=== PATIENT | male | born 1980 | race American Indian/Alaskan Native ===

== ENCOUNTER 2020-03-15 13:02 | Emergency (ER) | payer OTHER, MEDICAID ==
[~2020-03-15] VITALS: Ht 177.8 cm; Wt 66.3 kg
[~2020-03-15 13:02] MED LIST: NO HOME MEDS
[2020-03-15 14:48] LABS: URINE AMPHETAMINE SCREEN POSITIVE (Neg); URINE BARBITUATE SCREEN NEGATIVE (Neg); URINE BENZODIAZEPINES SCREEN NEGATIVE (Neg); URINE CANNABINOID SCREEN POSITIVE (Neg); URINE COCAINE SCREEN NEGATIVE (Neg); URINE METHADONE SCREEN NEGATIVE (Neg); URINE OPIATE SCREEN NEGATIVE (Neg); URINE PHENCYCLIDINE SCREEN NEGATIVE (Neg)
--- NOTE | 2020-03-15 15:13 | NUR ---
pt is still non-verbal. pt is in room walking back and forth. seems somewhat anxious.
--- NOTE | 2020-03-15 16:23 | NUR ---
pt in no distress but walking around room still. refused to have blood work drawn.
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
[2020-03-15 19:34] LABS: BASOPHILS # (AUTO) 0.1 X10'3 (0-0.2); BASOPHILS % (AUTO) 1.4 % (0-1); EOSINOPHILS # (AUTO) 0.1 X10'3 (0-0.9); HEMATOCRIT 41.6 % (42.0-52.0); LYMPHOCYTES # (AUTO) 1.6 X10'3 (1.1-4.8); LYMPHOCYTES % (AUTO) 16.5 % (21-51); MEAN CORPUSCULAR HEMOGLOBIN 30.9 PG (27.0-31.0); MEAN CORPUSCULAR HGB CONC 33.5 g/dL (33.0-36.5); MEAN CORPUSCULAR VOLUME 92.2 FL (78-98); MEAN PLATELET VOLUME 7.2 FL (7.4-10.4); MONOCYTES # (AUTO) 1.1 X10'3 (0-0.9); MONOCYTES % (AUTO) 11.8 % (2-12); NEUTROPHILS # (AUTO) 6.7 X10'3 (1.8-7.7); NEUTROPHILS % (AUTO) 69.3 % (42-75); PLATELET COUNT 233 X10'3 (140-440); RED BLOOD COUNT 4.52 X10'6 (4.70-6.10); RED CELL DISTRIBUTION WIDTH 12.8 % (11.5-14.5); WHITE BLOOD COUNT 9.6 X10'3 (4.5-11.0)
[2020-03-15 19:44] LABS: ALANINE AMINOTRANSFERASE 29 U/L (12-78); ALBUMIN 4.3 G/DL (3.4-5.0); ALBUMIN/GLOBULIN RATIO 1.2 (1.1-1.5); ALKALINE PHOSPHATASE 74 IU/L (46-116); ANION GAP 6 (8-16); ASPARTATE AMINO TRANSFERASE 44 U/L (10-37); BILIRUBIN,TOTAL 0.8 MG/DL (0.1-1.0); BLOOD UREA NITROGEN 13 MG/DL (7-18); BUN/CREATININE RATIO 17.8 (5.4-32.0); CHLORIDE 100 MMOL/L (99-107); CREATININE 0.73 MG/DL (0.60-1.10); GLUCOSE 93 MG/DL (70-104); POTASSIUM 3.9 MMOL/L (3.5-5.1); SODIUM 137 MMOL/L (135-145); TOTAL CARBON DIOXIDE 31.1 MMOL/L (24-32); TOTAL PROTEIN 7.9 G/DL (6.4-8.2); eGFR > 90 ML/MIN
[2020-03-15 19:46] LABS: ACETAMINOPHEN < 2.0 UG/ML (10-30); ETHANOL < 0.010 GM/DL (0.0-0.010)
[2020-03-15] MEDS ORDERED: LORazepam 2 mg/ml vial IM ONE (20:00)
[2020-03-15] MEDS ORDERED: diphenhydrAMINE 50 mg/ml inj IM ONE (20:00)
[2020-03-15] MEDS ORDERED: OLANZapine **IM** 10 mg inj. IM ONE (20:00)
--- NOTE | 2020-03-15 20:02 | NUR ---
MED REC FAXED TO PHARMACY
--- NOTE | 2020-03-15 20:54 | NUR ---
pt moved over from ed room 15 to overflow to bed 20 . pt on gurney in greens resting on his left side . resp even and unlabored . pt in the direct line of sight of nursing staff . attempted to assess and question patient about past medical hx and how he is currently feeling , patient mumberled, ' i need to sleep " pt slip over to bed [facility] without difficulty.
--- NOTE | 2020-03-15 20:57 | NUR ---
diet order faxed to dietary
--- NOTE | 2020-03-15 21:15 | NUR ---
PT LAYING ON HIS LEFT SIDE SLEEPING . RESP EVEN AND UMLABORED WILL CONTINUE TO MONIOTR AND ASSESS NEEDED
--- NOTE | 2020-03-15 21:25 | NUR ---
PACKET FAXED TO [facility]
--- NOTE | 2020-03-15 21:45 | NUR ---
PT SLEEPING ON HIS LEFT SIDE IN BED . HOB ELEVATED 30 DEGREES. REP EVEN AMD UNLABORED WILL CONTINUE TO ELVALUATE AND REASSESSQ 1 HR OR NEEDED
--- NOTE | 2020-03-15 22:06 | NUR ---
PT SLEEPING SUPINE. HOB ELEVATED 30 DEGREES . RESP EVEN AND UNLABORED . PT REPOSITIONING INDEPENDENTLY . WILL CONTINUE TO MONITOR AND REASSESS NEEDED
--- NOTE | 2020-03-15 23:54 | NUR ---
Breaking primary RN, pt. resting quietly, no signs of distress, respirations even and unlabored.
--- NOTE | 2020-03-16 01:00 | NUR ---
PT SLEEPING SUPINE. HOB ELEVATED 30 DEGREES . RESP EVEN AND UNLABORED
--- NOTE | 2020-03-16 02:15 | NUR ---
PT SLEEPING SUPINE. HOB ELEVATED 30 DEGREES . RESP EVEN AND UNLABORED . PT REPOSITIONING INDEPENDENTLY . WILL CONTINUE TO MONITOR AND REASSESS NEEDED
--- NOTE | 2020-03-16 03:00 | NUR ---
PT SLEEPING SUPINE RESP EVEN AND UNLABORED WILL CONTINUE TO MONITOR AND REASSESS
--- NOTE | 2020-03-16 04:11 | NUR ---
PT AWAKE UP OUT OF BED TO AMBULATE TO BATHROOM . GRINDING HIS TEETH . REPORTS HE IS " COLD" . WARM BLANKETS GIVEN
--- NOTE | 2020-03-16 04:22 | NUR ---
PT BACK TO BED . BED IS SOILED WITH URINE CHANGED BED AND PT CRAWLED BACK TO BED . PT LYING SUPINE IN BED WITH HOB ELEVATED 30 DEGREES . WARM BLANLETS GIVEN . ASKED THE PATIENT IF HE KNOWS WHERE HE IS AT AND IF HE HAS ANY PAST MEDICAL ISSUES THAT NURSING STAFF AND MD NEED TO BEAWRE OF . PT DID NOT SAYING THING . SHOOK HIS HEAD NO AND CLOSED HIS EYES. PT IN THE DIRECT LINE OF SIGHT OF NURSING STAFF .
--- NOTE | 2020-03-16 05:15 | NUR ---
PACKET REFAXED TO [facility] PREVIOUSLY AN ERROR MESSAGE WAS RECEIVED
--- NOTE | 2020-03-16 05:56 | NUR ---
PATIENT AUROSABLE WITH VS . RESTING WITH EYES CLOSED IN BED FOLLOWING DIRECTIONS . COROPORTAIVE
--- NOTE | 2020-03-16 06:43 | NUR ---
Patient laying in bed supine. Respirations are even and nonlabored.
--- NOTE | 2020-03-16 09:24 | NUR ---
Patient remains asleep supine in bed. Respirations are even and nonlabored.
--- NOTE | 2020-03-16 09:44 | NUR ---
Patient awoke for breakfast. Introduced self to patient and asked some questions, patient remains mute and will not speak.
--- NOTE | 2020-03-16 09:55 | NUR ---
Patient up to restroom.
--- NOTE | 2020-03-16 09:58 | NUR ---
Patient was observed talking to himself, when he noticed RN looking at him he sat down on the bed and stopped talking.
--- NOTE | 2020-03-16 10:19 | NUR ---
Meet from [facility] at bedside to speak with patient. Patient awake, alert, reluctant to speak with [facility] at first but answers questions when asked. No signs of distress noted.
--- NOTE | 2020-03-16 11:21 | NUR ---
Patient spoke to [facility] and they are keeping him on his 5150. Patient cannot answer questions posed. He starts talking about corpses, he does admit to being on probation. Speech is tangential, word salad.
[2020-03-16] MEDS: ziprasidone 20mg capsule PO SCH ×2 (12:53→20:13)
[2020-03-16] MEDS: LORazepam 1 MG tablet PO PRN (12:53)
--- NOTE | 2020-03-16 12:56 | NUR ---
Dr. Thornton consulted regarding medications, patient states that he has been on lithium and geodon in the past. He is still unwilling to have lab draw and without creatine levels only Geodon can be safely started at this time. Geodon 40 mg and Ativan 1 mg given for agitation and patient responding to internal stimuli. Patient now eating lunch.
--- NOTE | 2020-03-16 15:17 | NUR ---
Patient sleeping peacefully in bed after Geodon and Ativan administration.
--- NOTE | 2020-03-16 16:43 | NUR ---
Patient's public information officer, Yuval is here with ankle monitor elastic assembler. Speaking with patient at this time.
--- NOTE | 2020-03-16 16:50 | NUR ---
Dandre Barakat Lockstitch Waistband Setter [phone] stated that when patient is discharged he will need to come and pick patient up and have him register as a sex offender. Patient was released from alf on Sunday. Patient has ankle monitor on and it is to be charged 1 hr every 12 hours. Patient has failed to register.
--- NOTE | 2020-03-16 16:58 | NUR ---
DOOR CLAMP OPERATOR AIMEE COTA [phone]
--- NOTE | 2020-03-16 17:49 | NUR ---
Patient's ankle monitor charging. Patient sleeping supine in bed.
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
--- NOTE | 2020-03-16 21:04 | NUR ---
The patient appears to be sleeping
--- NOTE | 2020-03-16 23:04 | NUR ---
The patient appears to be sleeping
--- NOTE | 2020-03-17 00:50 | NUR ---
Registration here to interview the patient
--- NOTE | 2020-03-17 03:28 | NUR ---
The patient has been up to the bathroom. He is quiet and is now back laying on his bed
--- NOTE | 2020-03-17 04:53 | NUR ---
The patient appears to be asleep
[2020-03-17 05:46] VITALS: BP 103/63
--- NOTE | 2020-03-17 06:22 | NUR ---
Received pt sleeping in bed. Pt. moved to room 24. Respirations are even and nonlabored
--- NOTE | 2020-03-17 06:59 | NUR ---
Patient up to the bathroom.
[2020-03-17] MEDS: ziprasidone 20mg capsule PO SCH (07:35)
[2020-03-17] MEDS: LORazepam 1 MG tablet PO PRN (07:35)
--- NOTE | 2020-03-17 07:40 | NUR ---
Patient appears anxious, internally preoccupied. Ativan and Geodon given per order.
--- NOTE | 2020-03-17 09:03 | NUR ---
Patient laying in bed resting. No needs identified.
[2020-03-17] MEDS ORDERED: ZIPR40CA2 PO (12:18)
== END 2020-03-17 10:45 ==
LOC: ER 13:02
DX: F15.90 Other stimulant use, unspecified, uncomplicated (principal); Z59.0 Homelessness
CPT/HCPCS: 36415; 80053; 80305; 80320; 80329; 85025; 96372; 99285; J1200; J2060; J3490

== ENCOUNTER 2020-08-14 19:00 | Emergency (ER) | payer MEDICAID, OTHER ==
[~2020-08-14] VITALS: Ht 175.3 cm; Wt 75.0 kg
[~2020-08-14 19:00] MED LIST changes: -NO HOME MEDS; +PALI6TAB6 PO; +TRAZ-251 PO
[2020-08-14] MEDS ORDERED: thiamine inj. 100 MG in normal saline 100ml IV soln 99 ML IV ONE (19:25)
[2020-08-14] MEDS ORDERED: magnesium 2GM in 50ml NS 50 ML IV ONE (19:25)
[2020-08-14] MEDS ORDERED: phenobarbital inj 260 MG in normal saline 100ml IV soln 100 ML IV ONE (19:25)
[2020-08-14] MEDS ORDERED: normal saline 1000ML IV soln IVB ONE (19:25)
[2020-08-14] MEDS ORDERED: ondansetron/PF 4mg/2ml inj IV ONE (19:25)
[2020-08-14 19:45] LABS: ALANINE AMINOTRANSFERASE 19 U/L (12-78); ALBUMIN 3.6 G/DL (3.4-5.0); ALBUMIN/GLOBULIN RATIO 1.2 (1.1-1.5); ALKALINE PHOSPHATASE 89 IU/L (46-116); ANION GAP 11 (8-16); ASPARTATE AMINO TRANSFERASE 22 U/L (10-37); BILIRUBIN,TOTAL 0.2 MG/DL (0.1-1.0); BLOOD UREA NITROGEN 16 MG/DL (7-18); BUN/CREATININE RATIO 16.3 (5.4-32.0); CALCIUM 7.8 MG/DL (8.5-10.1); CHLORIDE 107 MMOL/L (99-107); CREATININE 0.98 MG/DL (0.60-1.10); GLUCOSE 158 MG/DL (70-104); LIPASE 230 U/L (73-393); POTASSIUM 3.4 MMOL/L (3.5-5.1); SODIUM 140 MMOL/L (135-145); TOTAL CARBON DIOXIDE 22.4 MMOL/L (24-32); TOTAL PROTEIN 6.5 G/DL (6.4-8.2); eGFR 84 ML/MIN
[2020-08-14 20:01] LABS: PLATELET COUNT 301 X10'3 (140-440); RED CELL DISTRIBUTION WIDTH 16.3 % (11.5-14.5)
[2020-08-14 20:02] LABS: CLARITY,URINE CLEAR (Clear); COLOR,URINE YELLOW (Yellow); GLUCOSE, URINE NEGATIVE (Neg); KETONES,URINE NEGATIVE (Neg); LEUKOCYTE ESTERASE ,URINE NEGATIVE (Neg); NITRITES, URINE NEGATIVE (Neg); OCCULT BLOOD,URINE NEGATIVE (Neg); PROTEIN,URINE NEGATIVE (Neg); UROBILINOGEN,URINE 0.2 E.U/dL (0.2-1.0)
[2020-08-14 20:03] LABS: HEMATOCRIT 37.7 % (42.0-52.0); HEMOGLOBIN 12.8 g/dl (14.0-17.9); MEAN CORPUSCULAR HEMOGLOBIN 29.8 PG (27.0-31.0); MEAN CORPUSCULAR VOLUME 87.6 FL (78-98); MEAN PLATELET VOLUME 7.7 FL (7.4-10.4); WHITE BLOOD COUNT 10.4 X10'3 (4.5-11.0)
[2020-08-14 20:03] LABS: UA COLLECTION TYPE STRAIGHT CATH
[2020-08-14 20:25] LABS: ANISOCYTOSIS 1+; PLATELET ESTIMATE NORMAL; TOTAL CELLS COUNTED 100
--- NOTE | 2020-08-14 21:00 | NUR ---
Pt pulled out left wrist IV, and climbed out of the end of the gurney and fell down on his knees. Fall was witnessed by RN. Pt did not hit his head and did not have any other injuries. Phenobarbital bolused. MD notified of fall and ordered non- behavioral restraints for patient safety. Restraits applied. CSM intact. VSS. Pt resting comfortably.
[2020-08-14 21:40] LABS: URINE AMPHETAMINE SCREEN NEGATIVE (Neg); URINE BARBITUATE SCREEN NEGATIVE (Neg); URINE BENZODIAZEPINES SCREEN NEGATIVE (Neg); URINE CANNABINOID SCREEN NEGATIVE (Neg); URINE COCAINE SCREEN NEGATIVE (Neg); URINE METHADONE SCREEN NEGATIVE (Neg); URINE OPIATE SCREEN NEGATIVE (Neg); URINE PHENCYCLIDINE SCREEN NEGATIVE (Neg)
--- NOTE | 2020-08-14 23:40 | NUR ---
UNABLE TO OBTAIN PT HISTORY RT ALOC
--- NOTE | 2020-08-15 09:34 | NUR ---
RECEIVED REPORT FROM RUPERT POE. PATIENT IS SLEEPING ON HIS LEFT SIDE, NO RESTRAINTS IN PLACE. ETOH LEVEL 0.4 LAST NIGHT AT 19:21. PER REPORT, PATIENT WAS FOUND DOWN IN [facility]. PATIENT TO BE PLACED ON MONITOR
--- NOTE | 2020-08-15 10:00 | NUR ---
PATIENT IS DROWSY AND ORIENTED X 4. PATIENT STATES THAT HE DOES NOT REMEMBER YESTERDAY. PATIENT WEAK AND FLOWER. PATIENT STATES THAT HE WAS RECENTLY RELEASED FROM [facility]. HE WAS STAYING AT A "[facility]" PAID FOR BY THE [facility]. PATIENT IS WEARING LEFT ANKLE BRACELET.
--- NOTE | 2020-08-15 11:21 | NUR ---
DISCUSSED DISCHARGE PLAN WITH NEWS PRODUCTION SUPERVISOR ALICIA
--- NOTE | 2020-08-15 11:32 | NUR ---
PATIENT AMBULATED 100 FEET, STEADY ON FEET. PATIENT ATE SANDWHICH, 4 OZ YOGURT, 220 ML WHOLE MILK, 120 APPLE JUICE, [id number] ML WATER WITHOUT DIFFICULTY OR COUGHING
[2020-08-15 11:34] VITALS: BP 115/72
== END 2020-08-15 12:20 | disposition home or self-care (01) ==
LOC: ER 19:00
DX: F10.229 Alcohol dependence with intoxication, unspecified (principal); F10.239 Alcohol dependence with withdrawal, unspecified; T51.0X1A Toxic effect of ethanol, accidental (unintentional), initial encounter; Z59.0 Homelessness; Z79.899 Other long term (current) drug therapy; Y90.8 Blood alcohol level of 240 mg/100 ml or more
CPT/HCPCS: 36415; 80053; 80305; 80320; 81003; 83690; 83735; 85007; 85025; 93005; 96365; 96366; 96368; 96375; 99284; J2405; J2560; J3411; J3475; J7030; 96367

== ENCOUNTER 2022-03-29 12:50 | Emergency (ER) | payer MEDICAID, OTHER ==
[~2022-03-29] VITALS: Ht 175.3 cm; Wt 81.8 kg
[2022-03-29 14:00] VITALS: BP 132/90
--- NOTE | 2022-03-29 14:11 | NUR ---
KAYLEN CHEW AT BEDSIDE.
[2022-03-29] MEDS ORDERED: NALO4SPR BOTHNARES (14:17)
[2022-03-29] MEDS ORDERED: potassium Cl 20 mEq SR tablet PO STA (14:18)
[2022-03-29] MEDS ORDERED: potassium Cl 10 mEq/100mL bag IV ONE (14:20)
--- NOTE | 2022-03-29 14:58 | NUR ---
CLARIFIED WITH KAYLEN CHEW IF HE HAS ACCIDENTLY PUT THE ORDER FOR ORAL AND IV POTASSIUM , PER PROVIDER NONADMIN.
== END 2022-03-29 16:13 | disposition home or self-care (01) ==
LOC: ER 12:51
DX: T40.1X1A Poisoning by heroin, accidental (unintentional), initial encounter (principal); F19.10 Other psychoactive substance abuse, uncomplicated; Y92.89 Other specified places as the place of occurrence of the external cause
CPT/HCPCS: 99283; J7030

== ENCOUNTER 2024-09-28 09:32 | Inpatient (IN) | payer MEDICAID, OTHER, SELFPAY ==
[2024-09-28] VITALS (19 sets, daily range): BP systolic 113–144; BP diastolic 74–102; PULSE 81–99; RESP 12–19; TEMP 98.3–98.6; O2SAT 97–100
[~2024-09-28] VITALS: Ht 175.3 cm; Wt 68.2 kg
[~2024-09-28 09:32] MED LIST changes: +NALO4SPR BOTHNARES
[2024-09-28 10:52] LABS: BASOPHILS # (AUTO) 0.1 X10'3 (0-0.2); BASOPHILS % (AUTO) 0.3 % (0-1); EOSINOPHILS % (AUTO) 0.2 % (0-6); LYMPHOCYTES # (AUTO) 0.9 X10'3 (1.1-4.8); LYMPHOCYTES % (AUTO) 4.2 % (21-51); MEAN CORPUSCULAR HEMOGLOBIN 30.5 PG (27.0-31.0); MEAN CORPUSCULAR HGB CONC 34.1 g/dL (33.0-36.5); MEAN CORPUSCULAR VOLUME 89.4 FL (78-98); MEAN PLATELET VOLUME 7.2 FL (7.4-10.4); MONOCYTES # (AUTO) 1.7 X10'3 (0-0.9); MONOCYTES % (AUTO) 8.4 % (2-12); NEUTROPHILS # (AUTO) 18.1 X10'3 (1.8-7.7); NEUTROPHILS % (AUTO) 86.9 % (42-75); PLATELET COUNT 439 X10'3 (140-440); RED BLOOD COUNT 3.92 X10'6 (4.70-6.10); RED CELL DISTRIBUTION WIDTH 14.4 % (11.5-14.5); WHITE BLOOD COUNT 20.8 X10'3 (4.5-11.0)
[2024-09-28 11:01] LABS: ALBUMIN 2.8 G/DL (3.4-5.0); ANION GAP 8 (8-16); BLOOD UREA NITROGEN 18 MG/DL (7-18); BUN/CREATININE RATIO 26.9 (10.0-20.0); CALCIUM 8.7 MG/DL (8.5-10.1); CHLORIDE 101 MMOL/L (99-107); CREATININE 0.67 MG/DL (0.60-1.10); GLUCOSE 102 MG/DL (70-104); POTASSIUM 3.9 MMOL/L (3.5-5.1); SODIUM 138 MMOL/L (135-145); TOTAL CARBON DIOXIDE 28.7 MMOL/L (24-32); eCRCL 134 ML/MIN; eGFR > 90 ML/MIN
[2024-09-28] MEDS ORDERED: iohexol 300mg/ml 100ml inj. ONE (11:09)
[2024-09-28 11:21] LABS: BILIRUBIN,URINE SMALL (Neg); CLARITY,URINE CLEAR (Clear); GLUCOSE, URINE NEGATIVE (Neg); KETONES,URINE 40 mg/dl (Neg); LEUKOCYTE ESTERASE ,URINE NEGATIVE (Neg); NITRITES, URINE NEGATIVE (Neg); OCCULT BLOOD,URINE NEGATIVE (Neg); PROTEIN,URINE 100 mg/dl (Neg)
[2024-09-28 11:26] LABS: COLOR,URINE DARK YELLOW (Yellow); UA COLLECTION TYPE CLN CATCH MIDSTREAM
[2024-09-28] MEDS: piperacillin/tazo 4.5gm/100ml 100 ML IV ONE (11:26)
[2024-09-28] MEDS: normal saline 1000ML IV soln IVB ONE (11:28)
[2024-09-28 11:29] LABS: BACTERIA,URINE NONE SEEN /HPF (Neg); FINE GRANULAR CAST 0-3 /LPF (NEGATIVE); RBC,URINE 0-2 /HPF (0-2); SQUAMOUS EPITHELIAL CELL,UR FEW /LPF (FEW); WBC,URINE 0-4 /HPF (0-4)
[2024-09-28] MEDS: vancomycin/NS 1 GM ADD-VANTAGE 250 ML X 1 DOSE IV ONE (11:35)
[2024-09-28] MEDS ORDERED: NO HOME MEDS (11:37)
[2024-09-28] MEDS: ondansetron/PF 4mg/2ml inj IV ONE (11:40)
[2024-09-28 12:06] LABS: PRO BRAIN NATRIURETIC PEPTIDE 133 PG/ML (0-125)
[2024-09-28 12:17] LABS: C-REACTIVE PROTEIN 30.27 MG/DL (0.0-0.5)
[2024-09-28] MEDS ORDERED: potassium Cl 20 mEq SR tablet PO PRN ×2 (12:45)
[2024-09-28] MEDS ORDERED: magnesium sulf-water 2g/50mL 50 ML IV PRN (12:45)
[2024-09-28] MEDS ORDERED: potassium Cl 40MEQ/1/2NS 520ml 520 ML IV PRN (12:45)
[2024-09-28] MEDS ORDERED: acetaminophen 325mg tablet PO PRN (12:45)
[2024-09-28] MEDS ORDERED: magnesium hydroxide 30ml (MOM) UD suspension PO PRN (12:45)
[2024-09-28] MEDS ORDERED: magnesium Cl slow-release 64mg tablet PO PRN (12:45)
[2024-09-28] MEDS ORDERED: ondansetron/PF 4mg/2ml inj IV PRN ×2 (12:45→13:30)
[2024-09-28] MEDS ORDERED: mag hydrox/Alum hydrox/simeth 30ml oral suspension PO PRN (12:45)
[2024-09-28] MEDS ORDERED: magnesium sulf-water 4G/100mL 100 ML IV PRN (12:45)
[2024-09-28] MEDS: fentaNYL/PF 50MCG/1 ML 2ML syringe IV ONE (12:57)
[2024-09-28] MEDS: normal saline 1000ml 1,000 ML IV SCH (12:58)
[2024-09-28] MEDS ORDERED: hydrALAZINE 20mg/ml inj. IV PRN (13:30)
[2024-09-28] MEDS: ringers solution, lacted 1,000 ML IV SCH (13:30)
[2024-09-28] MEDS ORDERED: HYDROmorphone/PF 0.2 MG/ML SYRINGE IV PRN ×2 (13:30)
[2024-09-28] MEDS ORDERED: morphine 2 MG/ML inj. syringe IV PRN (13:30)
[2024-09-28] MEDS ORDERED: proCHLORperazine 10 MG/2 ml inj IV PRN (13:30)
[2024-09-28] MEDS ORDERED: labetalol 20mg/4ml (5mg/ml) syringe IV PRN (13:30)
[2024-09-28] MEDS ORDERED: acetaminophen 1,000mg/100ml IV 100 ML IV PRN (13:30)
[2024-09-28] MEDS ORDERED: morphine 4 MG/ML inj SYRINge IV PRN (13:30)
[2024-09-28] MEDS ORDERED: meperidine/PF 25mg/ml syringe IV PRN (13:30)
[2024-09-28] MEDS ORDERED: BUPIVAcaine 2.5mg/ml inj 50ml vial (contains preservative) ONE (13:42)
[2024-09-28] MEDS ORDERED: bacitracin 15gm ointment TP ONE (13:42)
[2024-09-28] MEDS ORDERED: sevoflurane 250ml liquid IH ONE (13:52)
[2024-09-28] MEDS ORDERED: midazolam 1 mg/ML 2ml injection ONE (14:00)
[2024-09-28] MEDS ORDERED: fentaNYL /PF 50mcg/ml 5ml ampule ONE (14:01)
[2024-09-28] MEDS ORDERED: dexamethasone sod phosphate 4mg/ml inj. ONE (14:19)
[2024-09-28] MEDS ORDERED: LIDOcaine 2% (20mg/ml) 5ml vial ONE (14:19)
[2024-09-28] MEDS ORDERED: ondansetron/PF 4mg/2ml inj ONE (14:19)
[2024-09-28] MEDS ORDERED: propofol inj 20 ML IV ONE (14:19)
[2024-09-28] MEDS ORDERED: ceFAZolin 1000mg inj ONE (14:39)
[2024-09-28] MEDS: ceFAZolin 1000mg inj IR ONE (14:47)
[2024-09-28] MEDS: clindamycin 600mg/D5W 50ml 50 ML IV SCH (16:00)
[2024-09-28 19:16] LABS: CREATINE KINASE 395 U/L (39-308)
[2024-09-28 19:19] LABS: HEMOGLOBIN A1C 5.4 % (4.5-6.2)
[2024-09-28] MEDS: K and/or MAG REPLACEMENT MC SCH (20:00)
[2024-09-28] MEDS: vancomycin/NS 1 GM ADD-VANTAGE 250 ML IV SCH (20:06)
[2024-09-28] MEDS: piperacillin/tazo 4.5gm/100ml 100 ML IV SCH (23:00)
[2024-09-28] MEDS: docusate sod 100mg capsule PO SCH (23:03)
[2024-09-29] MEDS: amLODIPine 5mg tablet PO ONE (02:07)
[2024-09-29] MEDS: HYDROcodone/acetaminophen 10/325mg tab PO PRN (05:04)
[2024-09-29 06:00] VITALS: BP 137/97; PULSE 69; RESP 18; TEMP 98.5; O2SAT 99
[2024-09-29 06:43] LABS: BASOPHILS % (AUTO) 0.1 % (0-1); EOSINOPHILS % (AUTO) 0.1 % (0-6); HEMATOCRIT 30.2 % (42.0-52.0); HEMOGLOBIN 10.1 g/dl (14.0-17.9); LYMPHOCYTES # (AUTO) 0.7 X10'3 (1.1-4.8); LYMPHOCYTES % (AUTO) 4.4 % (21-51); MEAN CORPUSCULAR HEMOGLOBIN 29.5 PG (27.0-31.0); MEAN CORPUSCULAR HGB CONC 33.3 g/dL (33.0-36.5); MEAN CORPUSCULAR VOLUME 88.6 FL (78-98); MEAN PLATELET VOLUME 7.3 FL (7.4-10.4); MONOCYTES % (AUTO) 5.9 % (2-12); NEUTROPHILS # (AUTO) 14.7 X10'3 (1.8-7.7); NEUTROPHILS % (AUTO) 89.5 % (42-75); PLATELET COUNT 419 X10'3 (140-440); RED BLOOD COUNT 3.42 X10'6 (4.70-6.10); RED CELL DISTRIBUTION WIDTH 14.6 % (11.5-14.5); WHITE BLOOD COUNT 16.5 X10'3 (4.5-11.0)
[2024-09-29 06:53] LABS: ALANINE AMINOTRANSFERASE 34 U/L (12-78); ALBUMIN 2.2 G/DL (3.4-5.0); ALBUMIN/GLOBULIN RATIO 0.6 (1.1-1.5); ALKALINE PHOSPHATASE 85 IU/L (46-116); ANION GAP 6 (8-16); ASPARTATE AMINO TRANSFERASE 19 U/L (10-37); BILIRUBIN,TOTAL 0.3 MG/DL (0.1-1.0); BLOOD UREA NITROGEN 12 MG/DL (7-18); BUN/CREATININE RATIO 26.1 (10.0-20.0); CALCIUM 8.1 MG/DL (8.5-10.1); CHLORIDE 100 MMOL/L (99-107); CREATININE 0.46 MG/DL (0.60-1.10); GLUCOSE 147 MG/DL (70-104); MAGNESIUM 1.9 MG/DL (1.5-2.4); POTASSIUM 3.6 MMOL/L (3.5-5.1); SODIUM 133 MMOL/L (135-145); TOTAL CARBON DIOXIDE 26.6 MMOL/L (24-32); TOTAL PROTEIN 6.1 G/DL (6.4-8.2); eCRCL 196 ML/MIN; eGFR > 90 ML/MIN
[2024-09-29] MEDS: piperacillin/tazo 4.5gm/100ml 100 ML IV SCH (11:40)
[2024-09-29] MEDS: VANCOMYCIN LEVEL IV ONE (11:49)
[2024-09-29 16:26] LABS: URINE AMPHETAMINE SCREEN NEGATIVE (Neg); URINE BARBITUATE SCREEN NEGATIVE (Neg); URINE BENZODIAZEPINES SCREEN NEGATIVE (Neg); URINE CANNABINOID SCREEN NEGATIVE (Neg); URINE COCAINE SCREEN NEGATIVE (Neg); URINE METHADONE SCREEN NEGATIVE (Neg); URINE OPIATE SCREEN POSITIVE (Neg); URINE PHENCYCLIDINE SCREEN NEGATIVE (Neg)
[2024-09-29] MEDS: JUVEN Shake w/Arg/Glut/Ca2+Bmb (Juven 19.3gm) pkt 240ml PO SCH (17:52)
[2024-09-29 18:00] VITALS: BP 121/86; PULSE 79; RESP 14; TEMP 98.2; O2SAT 99
[2024-09-29 20:00] VITALS: RESP 18; O2SAT 94
[2024-09-29] MEDS: VANCOMYCIN/WATER FOR INJ (PEG) 1.25GM/250 ML IVPB IV SCH (21:48)
[2024-09-29 22:00] VITALS: BP 116/89; PULSE 77; RESP 18; TEMP 98.7; O2SAT 98
[2024-09-30 06:00] VITALS: BP 129/90; PULSE 88; RESP 16; TEMP 98.8; O2SAT 98
[2024-09-30 06:42] LABS: BASOPHILS # (AUTO) 0.1 X10'3 (0-0.2); BASOPHILS % (AUTO) 0.5 % (0-1); EOSINOPHILS # (AUTO) 0.1 X10'3 (0-0.9); EOSINOPHILS % (AUTO) 0.5 % (0-6); HEMATOCRIT 29.8 % (42.0-52.0); LYMPHOCYTES # (AUTO) 2.2 X10'3 (1.1-4.8); LYMPHOCYTES % (AUTO) 16.7 % (21-51); MEAN CORPUSCULAR HEMOGLOBIN 29.8 PG (27.0-31.0); MEAN CORPUSCULAR HGB CONC 33.4 g/dL (33.0-36.5); MEAN CORPUSCULAR VOLUME 89.4 FL (78-98); MEAN PLATELET VOLUME 7.3 FL (7.4-10.4); MONOCYTES # (AUTO) 1.1 X10'3 (0-0.9); MONOCYTES % (AUTO) 8.4 % (2-12); NEUTROPHILS # (AUTO) 9.5 X10'3 (1.8-7.7); NEUTROPHILS % (AUTO) 73.9 % (42-75); PLATELET COUNT 472 X10'3 (140-440); RED BLOOD COUNT 3.34 X10'6 (4.70-6.10); RED CELL DISTRIBUTION WIDTH 14.6 % (11.5-14.5); WHITE BLOOD COUNT 12.9 X10'3 (4.5-11.0)
[2024-09-30 07:36] LABS: HBSAG SCREEN Negative (Negative); HEP A AB, IGM Negative (Negative); HEP B CORE AB, IGM Negative (Negative)
[2024-09-30 07:42] LABS: ALANINE AMINOTRANSFERASE 28 U/L (12-78); ALBUMIN/GLOBULIN RATIO 0.5 (1.1-1.5); ALKALINE PHOSPHATASE 86 IU/L (46-116); ANION GAP 9 (8-16); ASPARTATE AMINO TRANSFERASE 20 U/L (10-37); BILIRUBIN,TOTAL 0.2 MG/DL (0.1-1.0); BLOOD UREA NITROGEN 15 MG/DL (7-18); BUN/CREATININE RATIO 22.4 (10.0-20.0); CHLORIDE 106 MMOL/L (99-107); CREATININE 0.67 MG/DL (0.60-1.10); GLUCOSE 103 MG/DL (70-104); MAGNESIUM 1.8 MG/DL (1.5-2.4); POTASSIUM 3.7 MMOL/L (3.5-5.1); SODIUM 139 MMOL/L (135-145); TOTAL CARBON DIOXIDE 23.8 MMOL/L (24-32); TOTAL PROTEIN 5.8 G/DL (6.4-8.2); eCRCL 134 ML/MIN; eGFR > 90 ML/MIN
[2024-09-30 08:00] VITALS: RESP 16; O2SAT 99
[2024-09-30 08:51] LABS: TOTAL CELLS COUNTED 100
[2024-09-30 08:52] LABS: PLATELET ESTIMATE INCREASED
[2024-09-30] MEDS: CefTRIAXone/D5W-Rocephin 1gm 50 ML IV SCH (09:30)
[2024-09-30 10:00] VITALS: BP 126/88; PULSE 83; RESP 16; TEMP 98.6; O2SAT 99
[2024-09-30 18:00] VITALS: BP 136/95; PULSE 101; RESP 14; TEMP 99; O2SAT 98
[2024-09-30 20:00] VITALS: RESP 14; O2SAT 98
[2024-09-30] MEDS ORDERED: VANCOMYCIN LEVEL IV ONE (21:30)
[2024-09-30 22:00] VITALS: BP 122/80; PULSE 91; RESP 16; TEMP 99.2; O2SAT 97
[2024-10-01 06:00] VITALS: BP 137/97; PULSE 84; RESP 16; TEMP 98.8; O2SAT 99
[2024-10-01 06:04] LABS: BASOPHILS # (AUTO) 0.1 X10'3 (0-0.2); EOSINOPHILS # (AUTO) 0.1 X10'3 (0-0.9); EOSINOPHILS % (AUTO) 0.7 % (0-6); HEMOGLOBIN 11.7 g/dl (14.0-17.9); MONOCYTES # (AUTO) 1.2 X10'3 (0-0.9)
[2024-10-01 06:07] LABS: BASOPHILS % (AUTO) 0.9 % (0-1); HEMATOCRIT 34.9 % (42.0-52.0); LYMPHOCYTES % (AUTO) 15.2 % (21-51); MEAN CORPUSCULAR HEMOGLOBIN 29.8 PG (27.0-31.0); MEAN CORPUSCULAR HGB CONC 33.5 g/dL (33.0-36.5); MEAN CORPUSCULAR VOLUME 89.1 FL (78-98); MEAN PLATELET VOLUME 7.1 FL (7.4-10.4); MONOCYTES % (AUTO) 9.4 % (2-12); NEUTROPHILS # (AUTO) 9.8 X10'3 (1.8-7.7); NEUTROPHILS % (AUTO) 73.8 % (42-75); PLATELET COUNT 656 X10'3 (140-440); RED BLOOD COUNT 3.92 X10'6 (4.70-6.10); WHITE BLOOD COUNT 13.2 X10'3 (4.5-11.0)
[2024-10-01 06:15] LABS: ALANINE AMINOTRANSFERASE 26 U/L (12-78); ALBUMIN 2.2 G/DL (3.4-5.0); ALBUMIN/GLOBULIN RATIO 0.5 (1.1-1.5); ALKALINE PHOSPHATASE 103 IU/L (46-116); ANION GAP 5 (8-16); ASPARTATE AMINO TRANSFERASE 18 U/L (10-37); BILIRUBIN,TOTAL 0.2 MG/DL (0.1-1.0); BLOOD UREA NITROGEN 15 MG/DL (7-18); BUN/CREATININE RATIO 20.8 (10.0-20.0); CALCIUM 8.5 MG/DL (8.5-10.1); CHLORIDE 107 MMOL/L (99-107); CREATININE 0.72 MG/DL (0.60-1.10); GLUCOSE 102 MG/DL (70-104); MAGNESIUM 2.1 MG/DL (1.5-2.4); POTASSIUM 4.1 MMOL/L (3.5-5.1); SODIUM 140 MMOL/L (135-145); TOTAL CARBON DIOXIDE 27.8 MMOL/L (24-32); TOTAL PROTEIN 6.5 G/DL (6.4-8.2); eCRCL 125 ML/MIN; eGFR > 90 ML/MIN
[2024-10-01 08:00] VITALS: RESP 16; O2SAT 99
[2024-10-01] MEDS ORDERED: HYDR-3972 PO (11:17)
[2024-10-01] MEDS ORDERED: CEPH-585 PO (11:17)
[2024-10-01] MEDS ORDERED: CEPH250T PO ×2 (11:25→16:57)
[2024-10-01] MEDS ORDERED: HYDR-3965 PO ×2 (11:28→19:42)
[2024-10-01 18:00] VITALS: BP 142/103; PULSE 76; RESP 16; TEMP 98.2; O2SAT 100
[2024-10-01 20:00] VITALS: RESP 16; O2SAT 100
[2024-10-01 20:59] VITALS: RESP 16; O2SAT 16
[2024-10-01 22:00] VITALS: BP 139/75; PULSE 84; RESP 16; TEMP 98; O2SAT 97
[2024-10-02 05:18] LABS: BASOPHILS # (AUTO) 0.1 X10'3 (0-0.2); EOSINOPHILS # (AUTO) 0.2 X10'3 (0-0.9); EOSINOPHILS % (AUTO) 2.2 % (0-6); HEMATOCRIT 35.8 % (42.0-52.0); HEMOGLOBIN 12.2 g/dl (14.0-17.9); LYMPHOCYTES # (AUTO) 2.1 X10'3 (1.1-4.8); LYMPHOCYTES % (AUTO) 20.2 % (21-51); MEAN CORPUSCULAR HEMOGLOBIN 30.5 PG (27.0-31.0); MEAN CORPUSCULAR HGB CONC 33.9 g/dL (33.0-36.5); MEAN PLATELET VOLUME 6.8 FL (7.4-10.4); MONOCYTES # (AUTO) 0.9 X10'3 (0-0.9); MONOCYTES % (AUTO) 8.9 % (2-12); NEUTROPHILS # (AUTO) 6.9 X10'3 (1.8-7.7); NEUTROPHILS % (AUTO) 67.7 % (42-75); PLATELET COUNT 699 X10'3 (140-440); RED BLOOD COUNT 3.98 X10'6 (4.70-6.10); RED CELL DISTRIBUTION WIDTH 14.8 % (11.5-14.5); WHITE BLOOD COUNT 10.2 X10'3 (4.5-11.0)
[2024-10-02 05:36] LABS: ALANINE AMINOTRANSFERASE 24 U/L (12-78); ALBUMIN 2.2 G/DL (3.4-5.0); ALBUMIN/GLOBULIN RATIO 0.5 (1.1-1.5); ALKALINE PHOSPHATASE 108 IU/L (46-116); ANION GAP 4 (8-16); ASPARTATE AMINO TRANSFERASE 19 U/L (10-37); BILIRUBIN,TOTAL 0.2 MG/DL (0.1-1.0); BLOOD UREA NITROGEN 18 MG/DL (7-18); BUN/CREATININE RATIO 25.7 (10.0-20.0); CALCIUM 8.4 MG/DL (8.5-10.1); CHLORIDE 102 MMOL/L (99-107); GLUCOSE 98 MG/DL (70-104); MAGNESIUM 2.2 MG/DL (1.5-2.4); POTASSIUM 4.7 MMOL/L (3.5-5.1); SODIUM 135 MMOL/L (135-145); TOTAL CARBON DIOXIDE 28.9 MMOL/L (24-32); TOTAL PROTEIN 6.9 G/DL (6.4-8.2); eCRCL 129 ML/MIN; eGFR > 90 ML/MIN
[2024-10-02 15:27] LABS: HEPATITIS C VIRUS ANTIBODY Reactive (Non Reactive)
[2024-10-03] MEDS ORDERED: CEPH-585 PO (20:43)
[2024-10-03] MEDS ORDERED: SULF1TAB49 PO (20:43)
== END 2024-10-02 11:45 | disposition home or self-care (01) | DRG 872 ==
LOC: ER 09:33 → ED HOLD 12:38 → ORTHO 4S 19:00
PROVIDERS: ADMIT Internal Medicine; ATTEND Internal Medicine
PROC: 0JDR3ZZ Extraction of Left Foot Subcutaneous Tissue and Fascia, Percutaneous Approach (ICD-10-PCS; principal; 2024-09-28 13:52)
DX: A41.9 Sepsis, unspecified organism (principal); L02.416 Cutaneous abscess of left lower limb; L03.116 Cellulitis of left lower limb; Z59.00 Homelessness unspecified; I96 Gangrene, not elsewhere classified; F32.A Depression, unspecified; F10.229 Alcohol dependence with intoxication, unspecified; F15.10 Other stimulant abuse, uncomplicated; F11.90 Opioid use, unspecified, uncomplicated; S82.832A Other fracture of upper and lower end of left fibula, initial encounter for closed fracture; X58.XXXA Exposure to other specified factors, initial encounter; Y93.89 Activity, other specified; Y92.89 Other specified places as the place of occurrence of the external cause; Y99.8 Other external cause status
CPT/HCPCS: 96365; 96367; 96375; 99285; Z7506; Z7508; 36415; 73610; 73701; 80048; 80053; 80074; 80202; 80305; 81001; 82550; 83036; 83605; 83735; 83880; 84145; 85007; 85025; 85651; 86140; 87040; 87070; 87075; 87077; 87081; 87186; 93005; 97116; 97161; 97530; A4618; A6223; A6253; A6266; A6446; A6449; A7000; G0378; J0690; J0696; J1100; J2003; J2250; J2405; J2543; J2704; J3010; J3370; J3372; J3490; J7030; Q9967

== ENCOUNTER 2024-10-03 17:49 | Emergency (ER) | payer OTHER ==
[~2024-10-03] VITALS: Ht 175.3 cm; Wt 68.0 kg
[~2024-10-03 17:49] MED LIST changes: +CEPH-585 PO; +CEPH250T PO; +HYDR-3965 PO; +HYDR-3972 PO; +NO HOME MEDS
[2024-10-03] MEDS: CefTRIAXone 1000mg IM Kit (w/lidocaine diluent) IM ONE (19:55)
[2024-10-03] MEDS ORDERED: SULF1TAB49 PO (20:43)
[2024-10-03] MEDS ORDERED: CEPH-585 PO (20:43)
[2024-10-03 21:04] VITALS: BP 128/95; PULSE 88; RESP 15; TEMP 98.2; O2SAT 99
== END 2024-10-03 21:00 | disposition home or self-care (01) ==
LOC: ER 17:51
DX: L03.116 Cellulitis of left lower limb (principal); F10.90 Alcohol use, unspecified, uncomplicated; F12.90 Cannabis use, unspecified, uncomplicated; F15.90 Other stimulant use, unspecified, uncomplicated; F11.90 Opioid use, unspecified, uncomplicated; Y90.9 Presence of alcohol in blood, level not specified; Z59.00 Homelessness unspecified
CPT/HCPCS: 96372; 99283; A6223; J0696; A6258; A6446